=== PATIENT | female | born 1960 | race Caucasian/White ===

== ENCOUNTER 2024-03-19 10:27 | Outpatient (RCR) | payer MEDICARE, BC, SELFPAY ==
--- NOTE | 2024-04-08 19:04 | CTCFLWUP_ITS ---
Patient: HUMA AGUILERA : 1960 Page 2 of 4 FOLLOW UP NOTE DATE OF SERVICE: 03/19/2024 NAME: HUMA AGUILERA ACCOUNT: [id number] : 1960 AGE: 63 INTERVAL HISTORY: Patient have fatigue. Fatigue is stable there is no changes since the last visit. HISTORY OF PRESENT ILLNESS: REASON FOR TODAY?S VISIT: I am seeing Ms. Aguilera here at [facility] clinic. She is clinical ly doing well. Denies any cough, chest pain, abdominal pain or leg cramps. Has good energy levels. De nies any weight loss or loss of appetite. Serum immunoelectrophoresis, showed no monoclonal proteins detected, 01/08/2024. 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 2008: Patient was seen by strainer tender Dr. Pedraza in [place] for some kind of protein problem in the urine. She denies any history of cigarette smoking. She lives in [place]. 03/22/2017: Hemoglobin 15.1, hematocrit 44.8, MCV 90.5, WBC 4.6, platelets 211,000. 03/16/2020: Hemoglobin 17.2, hematocrit 52.1, MCV 91.7, platelets 437,000, WBC 5.6. 04/08/2020: Hemoglobin 16.6, hematocrit 51.8, MCV 94, W8C 5.9, platelets 202,000. 06/27/2020: Hemoglobin 16.2, hematocrit 48.7, MCV 91.4, WBC 4.9, platelets 198,000. 08/20/2020: Hem - 2 Iobin 16.0, hematocrit 48.7, WBC 6.6, ANC 4.3, iatelet count 223,000. Lambda Light Chain, Free 55.7-26.3. Toppers Light Chain. Free . 3319.4 A lmmunoglobulin M 50-300 A lmmunoglobulin A , lmmunolobulin G 600-1 540. Imunorixation studies revealed ONE trace concentration band(a) migrating in the GAMMA region which wa s/were of. too low a concentration to definitively identity. 11/09/2020: Hemoglobin 16.0, hematocrit 48.3, WBC 4.2, ANC 3.1, platelets are 98,000. 06/06/2023: Hemoglobin 14.9, hematocrit 45.7, WBC 5.7, ANC 3.4, platelets 207,000, creatinine 0.92, violeta cium 10.6 01/08/2024: Hemoglobin 13.9, hematocrit 42.9, WBC 3.8, ANC 2.44, platelets 176,000, creatini ne 0.88, calcium 10.1 OTHER MEDICAL HISTORY/CONDITIONS: [place] 1960S SICCA SYNDROME AUTOIMMUNE DISEASE HYPERCALCEMIA GALLSTONES 1989 MEASLES/MUMPS HYPERPARATHYROIDISM ACID REFLUX HYPERTENSION HPV POSITIVE INTERVERTEBRAL DISC DEGENERATION ARTHRITIS CHOLECYSTECTOMY 1989 PARATHYROID SX 2016 LEFT HIP [id number] TOTAL HIP SX LEFT X6 SURGERIES Kellen REYNOLDS BILATERAL KNEE REPLACEMENTS 2007 and 2009 RIGHT SHOULDER SX 2009 RIGHT FOOT SX ?Clone Other Med Hx? FAMILY HISTORY: Father:?DENIES Mother:?DENIES Sibling:?DENIES Children:?NO?CHILDREN Cancer?History:?DENIES ?Clone Family Hx? 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 Tobacco?Use:?DENIES ETOH?Use:?DENIES ?Clone Social Hx? 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 MEDICATIONS: 1. colchicine - 0.6 mg 1 tab Twice a Day 2. hydroxychloroquine - 200 mg 1 tab Twice a Day 3. lansoprazole - 30 mg 1 Capsule Daily 4. traMADol - 50 mg 1 tab Daily 5. Vitamin D3 - 2,000 unit 2 Capsule Daily?Palabra Meds? Medications Last Reconciled by Liyah Peacock MA on 03/19/2024 ALLERGIES: ampicillin; NSAIDS (Non-Steroidal Anti-Inflammatory Drug) REVIEW OF SYSTEMS: A complete 14-point review of systems was performed and is negative except as noted in interval histo ry. PHYSICAL EXAMINATION:?CloneBlock PE? VITAL SIGNS: Temperature?98.4, B/P?141/89, Oxygen?Saturation?99% Weight?235?lbs PAIN: 2 - Mild pain ECOG Performance Status: 0 - Asymptomatic and fully active EYE: Conjunctivae is white. MOUTH: Oral cavity is dry. CHEST: Clear to auscultation. No wheezes or rales audible. CARDIAC: Rhythm regular, no murmurs or gallops present. ABDOMEN: Soft. No hepatomegaly. No splenomegaly. EXTREMITIES: No pedal edema or cyanosis. LABORATORY DATA: I have personally reviewed and interpreted each of the patient?s relevant lab tests, abnormal finding s are below: Date 11/09/20 ??WHITE?BLOOD?COUNT?(Thou/mm3) 5.2 ??RED?BLOOD?COUNT?(Miln/mm3) 5.27?H ??HEMOGLOBIN?(gm/dl) 16.0 ??HEMATOCRIT?(%) 48.3?H ??PLATELET?COUNT?(Thou/mm3) 198 ??NEUTROPHILS?%,?AUTO?(%) 60 ??LYMPH?%,?AUTO?(%) 26 ??NEUTROPHILS,?AUTO?(Thou/mm3) 3.1 ASSESSMENT/PLAN: 1) Erythrocytosis likely from KLARISSA 2) Obesity MPN negative COOKIE-2 negative Hemoglobin 13.9 and hematocrit 42.9 Goal is to keep hematocrit below 45 Sleep study pending Patient probably have KLARISSA given her body habitus ORDERS: Get sleep study records Cbc Cmp Ct scan chest abdomen and pelvis with iv contrast PTH Dental cleaence for bisphosphonates Get records for bone density RETURN TO CLINIC: I will see her back in the clinic in 2 months. BILLING AND COMPLIANCE: I reviewed external records from providers outside my specialty as summarized above. I spent a total of 50 minutes on this patient?s care on the day of their visit excluding time spent related to any bi lled procedures. This time includes time spent with the patient as well as time spent documenting in the medical record, reviewing patients records and tests, obtaining history, placing orders, communi cating with other healthcare professionals, counseling the patient, family or caregiver, and/or care coordination for the diagnoses above. Electronically Signed by: Charles Vaughn MD T: 7:02 PM CC: PCP: Elsie Valdez Referring: Elsie Valdez This document was completed utilizing speech recognition software. Grammatical errors, random word in sertions, pronoun errors, and incomplete sentences are an occasional consequence of this system due t o software limitations, ambient noise, and hardware issues. Any formal questions or concerns about th e content, text or information contained within the body of this dictation should be directly address ed to the provider for clarification.
== END 2024-04-02 23:59 | disposition home or self-care (01) ==
LOC: SCTC 10:27
PROVIDERS: PCP Nurse Practitioner Family; Referring Provider Nurse Practitioner Family; Visit Provider Internal Medicine Hematology & Oncology
DX: D75.1 Secondary polycythemia (principal); E66.9 Obesity, unspecified; Z68.35 Body mass index [BMI] 35.0-35.9, adult
CPT/HCPCS: 99212; G0463

== ENCOUNTER → 2024-10-14 | Outpatient (CLI) | payer MEDICARE, BC, SELFPAY ==
--- NOTE | 2024-10-14 08:15 | XR_ITS ---
Examination: Screening digital mammography, bilateral Computer aided detection 3-D breast Tomosynthesis, bilateral Date and time of exam: October 14, 2024 0803 hours Compared to mammograms dating to 12/17/2014 Indication: Screening Technique: Nonmagnified MLO, CC views of the breasts to been obtained, reconstructed from 3-D Tomosynthesis images. R2 computer aided detection program utilized for evaluation of suspicious masses and/or abnormal calcifications. 3-D Tomosynthesis images obtained. Findings: Scattered areas of fibroglandular density. Benign calcifications. No interval suspicious masses Impression: BI-RADS category II: Benign Findings. Recommend 1 year follow-up mammogram.
== END | disposition home or self-care (01) ==
LOC: CDIM 07:55
PROVIDERS: PCP Family Medicine; Referring Provider Obstetrics & Gynecology Gynecology; Visit Provider Obstetrics & Gynecology Gynecology
DX: Z12.31 Encounter for screening mammogram for malignant neoplasm of breast (principal); R92.323 Mammographic fibroglandular density, bilateral breasts; R92.1 Mammographic calcification found on diagnostic imaging of breast
CPT/HCPCS: 77063; 77067